=== PATIENT | male | born 1995 | race Caucasian/White ===

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

== ENCOUNTER 2017-09-17 19:46 | Emergency (ER) | payer BC, OTHER ==
[2017-09-17 20:01] VITALS: BP 124/78
--- NOTE | 2017-09-17 20:09 | UC ---
Respiratory Complaint HPI - HPI Summary HPI Summary: Pt presents with sinus pain/pressure/congestion and productive cough with yellow phlegm over the last 2-3 weeks getting progressively worse. He says that he has a history of asthma and bad allergies - was rx'd Flovent, fluticasone, Azelastine, and Ventolin last year and these have worked great for him - but he is running low, would like refills of these today. Has been taking mucinex OTC with mild relief. Denies fever, chills, sore throat, SOB, chest pain. - History of Current Complaint Chief Complaint: UCGeneralIllness Stated Complaint: CHEST CONGESTION, COUGH Time Seen by Provider: 09/17/17 20:05 Hx Obtained From: Patient Onset/Duration: Gradual Onset Timing: Constant Pain Intensity: 0 Character: Cough: Productive - Allergies/Home Medications Allergies/Adverse Reactions: Allergies Allergy/AdvReac Type Severity Reaction Status Date / Time amoxicillin Allergy Intermediate Rash Verified 09/17/17 20:01 PMH/Surg Hx/FS Hx/Imm Hx - Additional Past Medical History Additional PMH: Allergies Respiratory History: Asthma - Surgical History Surgical History: Yes Surgery Procedure, Year, and Place: T&A - Family History Known Family History: Positive: None Family History: no issues reported in famaily lineage - Social History Occupation: Student Lives: Dormitory/Roommates Alcohol Use: Occasionally Substance Use Type: None Smoking Status (MU): Never Smoked Tobacco - Immunization History Vaccination Up to Date: Yes Review of Systems Constitutional: Negative Skin: Negative Eyes: Negative ENT: Nasal Discharge, Sinus Congestion, Sinus Pain/Tenderness Respiratory: Cough Cardiovascular: Negative Gastrointestinal: Negative Neurovascular: Negative Neurological: Negative Psychological: Negative All Other Systems Reviewed And Are Negative: Yes Physical Exam - Summary Physical Exam Summary: GENERAL: NAD. WDWN HEENT: NC/AT. Conjunctiva clear without inflammation or discharge. TMs intact , no bulging, erythema, or edema. Nasal mucosa mildly swollen and erythematous with yellow discharge. TTP maxillary and frontal sinus. Posterior oropharynx without exudates, erythema, or tonsillar enlargement. Uvula midline. NECK: Supple without lymphadenopathy CHEST: CTAB. No r/r/w. No accessory muscle use. Breathing comfortably and in no distress. CV: RRR. Without m/r/g. Pulses intact. SKIN: No rash or erythema noted. NEURO: Alert. CN II-XII grossly intact. PSYCH: Age appropriate behavior. Triage Information Reviewed: Yes Vital Signs: Initial Vital Signs Temp 97.7 F 09/17/17 19:55 Pulse 90 09/17/17 19:55 Resp 17 09/17/17 19:55 BP 124/78 09/17/17 19:55 Pulse Ox 98 09/17/17 19:55 Diagnostic Evaluation - Laboratory O2 Sat by Pulse Oximetry: 98 Respiratory Course/Dx - Course Course Of Treatment: Sinusitis. Bronchitis. Asthma. Rx for azithromycin and refill of asthma medications - Differential Dx/Diagnosis Provider Diagnoses: Sinusitis. Bronchitis. Asthma Discharge - Sign-Out/Discharge Documenting (check all that apply): Discharge/Admit/Transfer - Discharge Plan Condition: Stable Disposition: HOME Prescriptions: Albuterol 2.5MG/3ML (0.083%)* [Ventolin 2.5 MG/3 ML NEB.ALICE*] 2.5 mg INH Q4H PRN #1 box PRN Reason: cough/wheeze Albuterol HFA INHALER* [Ventolin HFA Inhaler*] 2 puff INH Q4H PRN #1 mdi PRN Reason: Wheezing Azithromycin TAB* [Zithromax TAB (Z-KIMBERLEY) 250 mg #6 tabs] 2 tab PO .TODAY, THEN 1 DAILY #1 kimberley Fluticasone HFA 110 mcg(NF) [Flovent HFA 110 mcg(NF)] 1 puff INH BID PRN #1 mdi PRN Reason: Wheezing LevoCETirizine TAB (NF) [Xyzal TAB (NF)] 5 mg PO DAILY #30 tab Patient Education Materials: Sinusitis (ED) Referrals: Elizabeth Ruiz MD [Primary Care Provider] - Additional Instructions: If you develop a fever, shortness of breath, chest pain, new or worsening symptoms - please call your PCP or go to the ED. - Billing Disposition and Condition Condition: STABLE Disposition: HOME
== END 2017-09-17 20:18 | disposition home or self-care (01) ==
LOC: UCCORT 19:46
DX: J32.9 Chronic sinusitis, unspecified (principal); J45.909 Unspecified asthma, uncomplicated; Z88.3 Allergy status to other anti-infective agents
CPT/HCPCS: 99212; G0463

== ENCOUNTER 2018-02-05 10:09 | Emergency (ER) | payer BC ==
[2018-02-05 10:34] VITALS: BP 138/83
--- NOTE | 2018-02-05 11:13 | RAD ---
Indication: Cough, shortness of breath. 2 views of the chest including dual energy PA views demonstrate no mediastinal shift. Heart is of normal size and configuration. Lung awad are clear. IMPRESSION: No active cardiopulmonary disease is noted.
--- NOTE | 2018-02-05 11:24 | UC ---
Respiratory Complaint HPI - HPI Summary HPI Summary: productive cough x 3 months thick yellow sputum , no cold symptoms, no fever, no chills no sob, - History of Current Complaint Chief Complaint: UCRespiratory Stated Complaint: CONGESTION Time Seen by Provider: 02/05/18 10:42 Hx Obtained From: Patient Onset/Duration: Gradual Onset, Lasting Weeks - 12, Still Present Timing: Constant Severity Initially: Moderate Severity Currently: Moderate Pain Intensity: 0 Character: Cough: Productive - yellow Aggravating Factors: Exertion, Deep Breaths Alleviating Factors: Nothing Associated Signs And Symptoms: Negative: Dyspnea, Fever, Chills, Pleuritic Chest Pain, Wheezing, Hemoptysis, Dizziness, Calf Pain, Calf Swelling, Edema, URI, Nasal Congestion, Hoarseness, Sinus Discomfort - Allergies/Home Medications Allergies/Adverse Reactions: Allergies Allergy/AdvReac Type Severity Reaction Status Date / Time amoxicillin Allergy Intermediate Rash Verified 02/05/18 10:34 PMH/Surg Hx/FS Hx/Imm Hx Previously Healthy: Yes - Surgical History Surgical History: Yes Surgery Procedure, Year, and Place: T&A - Family History Known Family History: Positive: None Negative: Diabetes Family History: no issues reported in [facility] lineage - Social History Alcohol Use: Weekly Alcohol Amount: 7-8 Substance Use Type: None Smoking Status (MU): Never Smoked Tobacco - Immunization History Vaccination Up to Date: Yes Review of Systems Constitutional: Negative Skin: Negative Eyes: Negative ENT: Negative Respiratory: Cough Cardiovascular: Negative Gastrointestinal: Negative Is Patient Immunocompromised?: No All Other Systems Reviewed And Are Negative: Yes Physical Exam Triage Information Reviewed: Yes Appearance: Well-Appearing, No Pain Distress, Well-Nourished Vital Signs: Initial Vital Signs Temp 99.3 F 02/05/18 10:26 Pulse 96 02/05/18 10:26 Resp 18 02/05/18 10:26 BP 138/83 02/05/18 10:26 Pulse Ox 100 02/05/18 10:26 Vital Signs Reviewed: Yes Eye Exam: Normal Eyes: Positive: Conjunctiva Clear ENT: Positive: Normal ENT inspection, Hearing grossly normal, Pharynx normal Neck exam: Normal Neck: Positive: Supple, Nontender Respiratory Exam: Normal Respiratory: Positive: Chest non-tender, Lungs clear, Normal breath sounds Cardiovascular Exam: Normal Cardiovascular: Positive: RRR, No Murmur, Pulses Normal Abdominal Exam: Normal Bowel Sounds: Positive: Present Musculoskeletal Exam: Normal Skin Exam: Normal UC Diagnostic Evaluation - Laboratory O2 Sat by Pulse Oximetry: 100 Diagnostic Studies Comment: chest xray : IMPRESSION: No active cardiopulmonary disease is noted. Respiratory Course/Dx - Differential Dx/Diagnosis Provider Diagnoses: bronchitis Discharge - Sign-Out/Discharge Documenting (check all that apply): Patient Departure All imaging exams completed and their final reports reviewed: Yes - Discharge Plan Condition: Stable Disposition: HOME Prescriptions: Benzonatate CAP* [Tessalon 100 MG CAP*] 100 mg PO TID #21 cap methylPREDNISolone [Medrol Dosepak 4 MG*] 0 mg PO .SEE KIMBERLEY INSTRUCTION #1 packet Patient Education Materials: Acute Bronchitis (ED) Referrals: Alivia Chapin NP [Primary Care Provider] - 2 Weeks - Billing Disposition and Condition Condition: STABLE Disposition: Home
== END 2018-02-05 11:25 | disposition home or self-care (01) ==
LOC: UCCORT 10:09
DX: J40 Bronchitis, not specified as acute or chronic (principal); Z88.0 Allergy status to penicillin
CPT/HCPCS: 71046; 99212; G0463